=== PATIENT | male | born 1975 ===

== ENCOUNTER 2017-04-07 13:30 | Inpatient (IN) ==
[2017-04-07 14:28] LABS: Basophils % 0.6 % (0.0-0.8); Eosinophils # 0.1 10*3/uL (0.0-0.87); Hematocrit 40.7 VOL% (42.0-52.0); Immature Granulocytes % 0.1 %; Immature Granulocytes Absolute 0.01 #; Lymphocytes # 1.7 10*3/uL (1.4-4.0); Lymphocytes % 25.3 % (21.2-54.2); Mean Corpuscular HGB Conc 34.4 GM/DL (32-36); Mean Corpuscular Hemoglobin 33 PG (27-34); Mean Corpuscular Volume 97.1 FL (87-102); Mean Platelet Volume 10.1 FL (9.6-12.0); Monocytes # 0.6 10*3/uL (0.11-0.8); Monocytes % 8.9 % (1.7-12.7); Neutrophils # 4.4 10*3/uL (1.4-7.4); Neutrophils % 64.1 % (38.7-73.9); Platelet Count 181 T/CUMM (130-400); Red Blood Count 4.19 MC/CUMM (3.8-5.5); Red Cell Distribution Width 12.4 % (9.3-17.3); White Blood Count 6.9 T/CUMM (4-12)
[2017-04-07 14:32] LABS: Apearance,Urine CLEAR (Clear); Bilirubin,Urine Negative (Negative); Blood, Urine Negative (Negative); Glucose,Urine (UA) Negative (Negative); Ketones,Urine Negative (Negative); Mucus,Urine Occasional /LPF (Occasional); Nitrite,Urine Negative (Negative); Protein,Urine Negative; RBC,Urine 1 /HPF (0-4); Urine Color Yellow (Yellow); Urine Specific Gravity 1.021 (1.001-1.035); WBC,Urine 1 /HPF (0-6)
[2017-04-07 14:40] LABS: Barbiturates Screen,Urine Negative (Negative); Benzodiazepines Screen,Urine Negative (Negative); Cannabinoid Screen,Urine Negative (Negative); Opiate Screen,Urine Negative (Negative); Phencyclidine Screen,Urine Negative (Negative)
[2017-04-07 14:59] LABS: Albumin 3.2 G/DL (3.4-5.0); Bilirubin,Total 0.5 MG/DL (0.2-1.0); Calcium 8.5 MG/DL (8.5-10.1); Total Protein 7.3 G/DL (6.4-8.3)
[2017-04-07] MEDS ORDERED: NITROGLYCERIN 2% OINT 1 INCH/GM PACK TOP STA (15:37)
[2017-04-07] MEDS ORDERED: ASPIRIN 325 MG TABLET PO STA (15:37)
[2017-04-07] MEDS ORDERED: NITROGLYCERIN 2% OINT 1 INCH/GM PACK TOP ONE (15:38)
[2017-04-07] MEDS ORDERED: ASPIRIN 325 MG TABLET ONE (15:38)
[2017-04-07] MEDS ORDERED: ACETAMINOPHEN 325 MG TABLET PO PRN (16:47)
[2017-04-07] MEDS ORDERED: diphenhydrAMINE CAP 25 MG CAPSULE PO PRN (16:47)
[2017-04-07] MEDS ORDERED: NICOTINE 21 MG/24 HR PATCH TRANSDERM PRN (16:47)
[2017-04-07] MEDS ORDERED: traZODone 50 MG TABLET PO PRN (16:47)
[2017-04-07] MEDS ORDERED: DOCUSATE SODIUM 100 MG CAPSULE PO PRN (16:47)
[2017-04-07] MEDS ORDERED: ONDANSETRON 4 MG/2 ML VIAL IV PRN (16:47)
[2017-04-07] MEDS ORDERED: guaiFENesin/DM ER 600-30 MG TABLET PO PRN (16:47)
[2017-04-07] MEDS ORDERED: THIAMINE INJ 100 MG, FOLIC ACID INJ 1 MG, MULTIVITAMIN INJ 10 ML in SODIUM CHLORIDE 0.9... IV SCH (17:00)
[2017-04-07] MEDS ORDERED: ENOXAPARIN 40 MG/0.4 ML SYRINGE SUBCUT SCH (17:00)
[2017-04-07] MEDS: PANTOPRAZOLE 40 MG TABLET PO SCH (21:24)
[2017-04-07] MEDS: LORazepam 2 MG/1 ML VIAL IV SCH ×2 (21:24→21:25)
[2017-04-07] MEDS: ENOXAPARIN 80 MG/0.8 ML SYRINGE SUBCUT SCH (21:24)
[2017-04-07] MEDS: 1: MULTIVITAMIN INJ 10 ML, FOLIC ACID INJ 1 MG, THIAMINE INJ 100 MG in SODIUM CHLORIDE 0 IV SCH (21:25)
[2017-04-07 22:18] LABS: Troponin I Only 0.954 NG/ML (0.00-0.045)
[2017-04-08 01:16] LABS: Albumin 2.8 G/DL (3.4-5.0); Bilirubin,Total 0.5 MG/DL (0.2-1.0); Calcium 8.1 MG/DL (8.5-10.1); Magnesium 1.7 MG/DL (1.8-2.4); Osmolality,Calculated 284.1 MOS/KG (273-304); Potassium 3.9 MMOL/L (3.5-5.1); Risk Ratio 2.06; Thyroid Stimulating Hormone 4.88 uIU/ml (0.358-3.74); Total Protein 6.5 G/DL (6.4-8.3); VLDL CHOLESTEROL 20.8 MG/DL
[2017-04-08 01:21] LABS: Troponin I Only 0.971 NG/ML (0.00-0.045)
[2017-04-08 01:30] LABS: Basophils % 0.6 % (0.0-0.8); Eosinophils # 0.2 10*3/uL (0.0-0.87); Eosinophils % 2.2 % (0.00-10.9); Hematocrit 38.5 VOL% (42.0-52.0); Hemoglobin 13.4 GM/DL (14.0-18.0); Immature Granulocytes % 0.3 %; Immature Granulocytes Absolute 0.02 #; Lymphocytes # 1.8 10*3/uL (1.4-4.0); Lymphocytes % 27.4 % (21.2-54.2); Mean Corpuscular HGB Conc 34.8 GM/DL (32-36); Mean Corpuscular Hemoglobin 34 PG (27-34); Mean Platelet Volume 10.6 FL (9.6-12.0); Monocytes # 0.6 10*3/uL (0.11-0.8); Monocytes % 9.3 % (1.7-12.7); Neutrophils % 60.2 % (38.7-73.9); Platelet Count 180 T/CUMM (130-400); Red Blood Count 3.97 MC/CUMM (3.8-5.5); Red Cell Distribution Width 12.5 % (9.3-17.3); White Blood Count 6.7 T/CUMM (4-12)
[2017-04-08] MEDS: LORazepam 2 MG/1 ML VIAL IV SCH ×6 (02:55→23:17)
[2017-04-08] MEDS: 1: MULTIVITAMIN INJ 10 ML, FOLIC ACID INJ 1 MG, THIAMINE INJ 100 MG in SODIUM CHLORIDE 0 IV SCH ×4 (04:31→15:00)
[2017-04-08] MEDS: PANTOPRAZOLE 40 MG TABLET PO SCH (09:39)
[2017-04-08] MEDS: ENOXAPARIN 80 MG/0.8 ML SYRINGE SUBCUT SCH ×2 (09:40→23:18)
[2017-04-08] MEDS: CARVEDILOL 3.125 MG TABLET PO SCH ×2 (10:41→23:17)
[2017-04-09] MEDS: LORazepam 2 MG/1 ML VIAL IV SCH ×6 (01:12→22:04)
[2017-04-09] MEDS: 1: MULTIVITAMIN INJ 10 ML, FOLIC ACID INJ 1 MG, THIAMINE INJ 100 MG in SODIUM CHLORIDE 0 IV SCH ×2 (01:13→11:37)
[2017-04-09] MEDS: ENOXAPARIN 80 MG/0.8 ML SYRINGE SUBCUT SCH ×2 (09:21→21:35)
[2017-04-09] MEDS: PANTOPRAZOLE 40 MG TABLET PO SCH (09:21)
[2017-04-09] MEDS: CARVEDILOL 3.125 MG TABLET PO SCH ×2 (09:22→22:00)
[2017-04-09] MEDS ORDERED: MAGNESIUM SULF RIDER 2 GM in PREMIX 1 EACH IV PRN (12:14)
[2017-04-09] MEDS ORDERED: diphenhydrAMINE CAP 25 MG CAPSULE PO ONE (12:14)
[2017-04-09] MEDS ORDERED: DIAZEPAM 5 MG TABLET PO ONE (12:14)
[2017-04-09] MEDS ORDERED: POTASSIUM CHLORIDE RIDER 10 MEQ in PREMIX 1 EACH IV PRN (12:14)
[2017-04-09] MEDS ORDERED: ASPIRIN CHEW 81 MG TABLET PO ONE (12:17)
[2017-04-10] MEDS: 1: MULTIVITAMIN INJ 10 ML, FOLIC ACID INJ 1 MG, THIAMINE INJ 100 MG in SODIUM CHLORIDE 0 IV SCH ×3 (03:05→09:06)
[2017-04-10] MEDS: LORazepam 2 MG/1 ML VIAL IV SCH ×5 (04:43→17:08)
[2017-04-10 05:32] LABS: Calcium 8.7 MG/DL (8.5-10.1); Osmolality,Calculated 274.5 MOS/KG (273-304); Potassium 3.7 MMOL/L (3.5-5.1)
[2017-04-10 05:40] LABS: Troponin I Only 0.419 NG/ML (0.00-0.045)
[2017-04-10] MEDS ORDERED: diphenhydrAMINE CAP 50 MG CAPSULE ONE (08:58)
[2017-04-10] MEDS ORDERED: DIAZEPAM 5 MG TABLET ONE (08:59)
[2017-04-10] MEDS ORDERED: ASPIRIN CHEW 81 MG TABLET PO SCH (09:00)
[2017-04-10] MEDS: PANTOPRAZOLE 40 MG TABLET PO SCH (09:05)
[2017-04-10] MEDS: CARVEDILOL 3.125 MG TABLET PO SCH (09:05)
[2017-04-10] MEDS: ENOXAPARIN 80 MG/0.8 ML SYRINGE SUBCUT SCH (09:07)
[2017-04-10] MEDS ORDERED: HEPARIN/NACL 0.9% 2 UNITS/ML 2,000 ML IV ONE (09:26)
[2017-04-10] MEDS ORDERED: LIDOCAINE 1% 20 ML VIAL ONE (09:26)
[2017-04-10] MEDS ORDERED: HYDROmorphone 2 MG/1 ML VIAL ONE (09:28)
[2017-04-10] MEDS ORDERED: VERAPAMIL 5 MG/2 ML VIAL ONE (09:28)
[2017-04-10] MEDS ORDERED: NITROGLYCERIN DRIP 50 MG/250 ML BOTTLE IV ONE (09:28)
[2017-04-10] MEDS ORDERED: MIDAZOLAM 2 MG/2 ML VIAL ONE (09:28)
[2017-04-10] MEDS ORDERED: methylPREDNISolone SOD SUC 125 MG/2 ML VIAL ONE (09:37)
[2017-04-10 16:41] VITALS: BP 110/68
== END 2017-04-10 21:41 | disposition home or self-care (01) | DRG 287 ==
LOC: EDUNIT# → EDBD → N.ED 13:30 → N.EDINP 16:15 → N.TELES 17:58
PROC: CLCCHCL (ICD-10-PCS; 2017-04-10 10:15)

== ENCOUNTER 2018-07-20 20:51 | Observation (INO) ==
[2018-07-20] MEDS ORDERED: LIDOCAINE 2% 20 ML VIAL ONE (21:56)
[2018-07-20] MEDS ORDERED: ACETAMINOPHEN 325 MG TABLET PO PRN (23:42)
[2018-07-20] MEDS ORDERED: ONDANSETRON 4 MG/2 ML VIAL IV PRN (23:42)
[2018-07-20] MEDS ORDERED: MORPHINE 4 MG/1 ML VIAL IV PRN (23:42)
[2018-07-20] MEDS ORDERED: NICOTINE 21 MG/24 HR PATCH TRANSDERM PRN (23:42)
[2018-07-20] MEDS ORDERED: DOCUSATE SODIUM 100 MG CAPSULE PO PRN (23:42)
[2018-07-20] MEDS ORDERED: ZALEPLON 5 MG CAPSULE PO PRN (23:42)
[2018-07-20] MEDS ORDERED: LORazepam 2 MG/1 ML VIAL IV PRN ×2 (23:56)
[2018-07-21] MEDS: CEFTAROLINE 600 MG in SODIUM CHLORIDE 0.9% 100 ML IV SCH ×3 (03:30→23:47)
[2018-07-21] MEDS: ENOXAPARIN 40 MG/0.4 ML SYRINGE SUBCUT SCH (03:31)
[2018-07-21 05:09] LABS: Basophils % 0.2 % (0.0-0.8); Eosinophils # 0.1 10*3/uL (0.0-0.87); Eosinophils % 1.1 % (0.00-10.9); Hematocrit 35.2 VOL% (42.0-52.0); Hemoglobin 11.2 GM/DL (14.0-18.0); Immature Granulocytes % 0.3 %; Immature Granulocytes Absolute 0.02 #; Lymphocytes # 1.8 10*3/uL (1.4-4.0); Lymphocytes % 26.8 % (21.2-54.2); Mean Corpuscular HGB Conc 31.8 GM/DL (32-36); Mean Corpuscular Hemoglobin 30 PG (27-34); Mean Corpuscular Volume 92.9 FL (87-102); Mean Platelet Volume 9.6 FL (9.6-12.0); Monocytes # 0.5 10*3/uL (0.11-0.8); Monocytes % 8.1 % (1.7-12.7); Neutrophils # 4.2 10*3/uL (1.4-7.4); Neutrophils % 63.5 % (38.7-73.9); Platelet Count 234 T/CUMM (130-400); Red Blood Count 3.79 MC/CUMM (3.8-5.5); Red Cell Distribution Width 15.3 % (9.3-17.3); White Blood Count 6.5 T/CUMM (4-12)
[2018-07-21 05:37] LABS: Albumin 2.7 G/DL (3.4-5.0); Bilirubin,Total 0.7 MG/DL (0.2-1.0); Calcium 8.3 MG/DL (8.5-10.1); Potassium 3.2 MMOL/L (3.5-5.1); Total Protein 6.6 G/DL (6.4-8.3)
[2018-07-21] MEDS: THIAMINE 100 MG TABLET PO SCH (08:12)
[2018-07-21] MEDS: MULTIVITAMIN (CENTRUM) TABLET PO SCH (08:12)
[2018-07-21] MEDS: FOLIC ACID 1 MG TABLET PO SCH (08:12)
[2018-07-22] MEDS: ENOXAPARIN 40 MG/0.4 ML SYRINGE SUBCUT SCH ×2 (05:32→23:20)
[2018-07-22] MEDS: FOLIC ACID 1 MG TABLET PO SCH (08:49)
[2018-07-22] MEDS: THIAMINE 100 MG TABLET PO SCH (08:49)
[2018-07-22] MEDS: MULTIVITAMIN (CENTRUM) TABLET PO SCH (08:49)
[2018-07-22] MEDS ORDERED: methylPREDNISolone SOD SUC 40 MG/1 ML VIAL IV ONE (08:55)
[2018-07-22 09:21] LABS: Basophils % 0.1 % (0.0-0.8); Eosinophils # 0.1 10*3/uL (0.0-0.87); Hematocrit 35.6 VOL% (42.0-52.0); Hemoglobin 11.3 GM/DL (14.0-18.0); Immature Granulocytes % 0.4 %; Immature Granulocytes Absolute 0.03 #; Lymphocytes # 1.6 10*3/uL (1.4-4.0); Lymphocytes % 22.8 % (21.2-54.2); Mean Corpuscular HGB Conc 31.7 GM/DL (32-36); Mean Corpuscular Hemoglobin 29 PG (27-34); Mean Corpuscular Volume 92.7 FL (87-102); Mean Platelet Volume 9.7 FL (9.6-12.0); Monocytes # 0.5 10*3/uL (0.11-0.8); Monocytes % 6.5 % (1.7-12.7); Neutrophils # 4.8 10*3/uL (1.4-7.4); Neutrophils % 69.2 % (38.7-73.9); Platelet Count 234 T/CUMM (130-400); Red Blood Count 3.84 MC/CUMM (3.8-5.5); White Blood Count 6.9 T/CUMM (4-12)
[2018-07-22 09:51] LABS: Calcium 8.3 MG/DL (8.5-10.1); Osmolality,Calculated 277.4 MOS/KG (273-304); Potassium 3.3 MMOL/L (3.5-5.1)
[2018-07-22] MEDS: CEFTAROLINE 600 MG in SODIUM CHLORIDE 0.9% 100 ML IV SCH ×2 (13:00→23:20)
[2018-07-22] MEDS: POTASSIUM CHLORIDE 20 MEQ TABLET PO PRN ×2 (20:51→23:20)
[2018-07-23] MEDS: POTASSIUM CHLORIDE 20 MEQ TABLET PO PRN ×2 (01:30→06:17)
[2018-07-23 05:34] LABS: Basophils % 0.1 % (0.0-0.8); Eosinophils % 0.3 % (0.00-10.9); Hemoglobin 11.4 GM/DL (14.0-18.0); Immature Granulocytes % 0.2 %; Immature Granulocytes Absolute 0.02 #; Lymphocytes # 2.5 10*3/uL (1.4-4.0); Lymphocytes % 23.6 % (21.2-54.2); Mean Corpuscular HGB Conc 32.6 GM/DL (32-36); Mean Corpuscular Hemoglobin 30 PG (27-34); Mean Corpuscular Volume 91.6 FL (87-102); Mean Platelet Volume 10.4 FL (9.6-12.0); Monocytes # 0.6 10*3/uL (0.11-0.8); Monocytes % 5.9 % (1.7-12.7); Neutrophils # 7.4 10*3/uL (1.4-7.4); Neutrophils % 69.9 % (38.7-73.9); Platelet Count 244 T/CUMM (130-400); Red Blood Count 3.82 MC/CUMM (3.8-5.5); Red Cell Distribution Width 14.7 % (9.3-17.3); White Blood Count 10.5 T/CUMM (4-12)
[2018-07-23 06:07] LABS: Calcium 8.3 MG/DL (8.5-10.1); Osmolality,Calculated 280.3 MOS/KG (273-304); Potassium 3.9 MMOL/L (3.5-5.1)
[2018-07-23] MEDS: THIAMINE 100 MG TABLET PO SCH (09:27)
[2018-07-23] MEDS: FOLIC ACID 1 MG TABLET PO SCH (09:27)
[2018-07-23] MEDS: MULTIVITAMIN (CENTRUM) TABLET PO SCH (09:27)
[2018-07-23 09:53] VITALS: BP 110/60
== END 2018-07-23 10:30 | disposition home or self-care (01) ==
LOC: EDBD → EDUNIT# → N.ED 20:51 → N.EDINP 20:51 → SUATTDRO 23:40 → N.5E 07-21 00:15
PROVIDERS: ADMIT Hospitalist; ATTEND Internal Medicine